=== PATIENT | male | born 1975 | race Caucasian/White ===

== ENCOUNTER 2017-02-16 16:21 | Emergency (ER) | payer BC, OTHER ==
[~2017-02-16] VITALS: Ht 177.8 cm; Wt 86.3 kg
[2017-02-16 16:22] VITALS: TEMP 36.6; Ht 177.8 cm; Wt 86.3 kg
[2017-02-16] MEDS ORDERED: ACET-1256 PO (16:49)
[2017-02-16] MEDS ORDERED: CYCLOBENZAPRINE HCL 10 MG TAB PO STA (16:51)
[2017-02-16] MEDS ORDERED: HYDROCODONE/ACETAMOPHEN 5/325MG TAB PO STA (16:51)
[2017-02-16] MEDS ORDERED: KETOROLAC TROMETHAMINE 60 MG/2 ML VIAL IM STA (16:51)
[2017-02-16] MEDS ORDERED: DEXAMETHASONE SOD INJ 10 MG/ML VIAL IM ONE (17:00)
--- NOTE | 2017-02-16 17:30 | DIAGNOSTIC IMAGING REPORT ---
LUMBAR SPINE 5 VIEWS CLINICAL HISTORY: Lumbago. FINDINGS: 5 views of the lumbar spine are correlated with abdominal CT dated 12/14/2015. The skeletal structures are well mineralized. There is no radiographic evidence of fracture or malalignment. Vertebral body height and alignment are maintained. The transverse and spinous processes are intact. There is no evidence of spondylolysis. The intervertebral disc spaces are well-maintained. The visualized bony pelvis appears intact. There is a nonobstructed abdominal bowel gas pattern. IMPRESSION: Unremarkable radiographic evaluation of the lumbosacral spine. Electronically signed by: Jonathon Malagon M.D. 02/16/2017 5:29 PM Dictated Date/Time: 02/16/2017 5:28 PM
--- NOTE | 2017-02-16 17:51 | EMERGENCY ROOM VISIT NOTE ---
ED Visit Note First contact with patient: 16:35 CHIEF COMPLAINT: Low back pain HISTORY OF PRESENT ILLNESS: This 41-year-old male presents the ER with chief complaint of low back pain. The patient states that on he was splitting wood with a log splitter and was sitting on a log for an extended period time leaning forward feeding in the wood to the splitter. The patient states that evening he started getting pain in the lower back and radiating down the back of both his legs. The patient denies any numbness and tingling. The patient states it hurts to sit down or lay down. The patient has been taken ibuprofen without any relief. The patient denies any loss of bowel or bladder control. The patient denies any saddle anesthesia or any urinary symptoms. REVIEW OF SYSTEMS: 6 system review was performed and was negative unless stated otherwise in history of present illness. PMH: The patient is healthy; stomach problems SOCIAL HISTORY: Patient lives with his . The patient admits to tobacco use but denies any alcohol use. PHYSICAL EXAM: Vital Signs normal: Reviewed Nurse's notes and agree. GEN.: 41- year-old white male appears uncomfortable secondary to back pain. MENTAL STATUS : Alert and oriented in no acute distress. LUMBAR SPINE: No gross bony abnormality noted. Patient is nontender to palpation over the spinous processes. He is tender to palpation over the paravertebral regions bilaterally.. He has full range of motion of the lumbar spine with pain elicited with all movements. Muscle strength is 5 out of 5 bilateral lower extremities and symmetrical. NEURO: Patient is able to heel and toe walk without difficulty. I lateral patellar and Achilles reflexes are 2+. Sensation is intact to pinprick bilateral lower extremities. Negative straight leg raise bilaterally. EMERGENCY DEPARTMENT COURSE: The patient was evaluated. The patient was given Toradol 60 mg IM, Decadron 10 mg IM, Flexeril 10 mg by mouth and [place] 5/325 mg 2 tablets by mouth for pain. X-ray of the lumbar spine was ordered and interpreted by the radiologist and myself. DIAGNOSTICS:LUMBAR SPINE 5 VIEWS CLINICAL HISTORY: Lumbago. FINDINGS: 5 views of the lumbar spine are correlated with abdominal CT dated 12/14/2015. The skeletal structures are well mineralized. There is no radiographic evidence of fracture or malalignment. Vertebral body height and alignment are maintained. The transverse and spinous processes are intact. There is no evidence of spondylolysis. The intervertebral disc spaces are well-maintained. The visualized bony pelvis appears intact. There is a nonobstructed abdominal bowel gas pattern. IMPRESSION: Unremarkable radiographic evaluation of the lumbosacral spine. Electronically signed by: Jonathon Malagon M.D. 02/16/2017 5:29 PM Dictated Date/Time: 02/16/2017 5:28 PM The patient was informed of the findings. The patient was reevaluated was feeling better. The patient was discharged home with his driving. DIAGNOSIS: Lumbar strain DISCHARGE INSTRUCTIONS AND TREATMENT: Take Medrol dosepak as prescribed. Ibuprofen 600 mg every 6 hours with food for pain. Rx is given for [place] 5/325 mg. 1-2 tablets every 6 hours as needed for more severe pain. Dispense [address] taking the [place] patient was also given Rx for Flexeril 10 mg. One tablet p.o. every 8 hours for muscle spasms. Dispense [address] taking the Flexeril. Avoid staying in any one position for an extended period of time. If symptoms persist or worsen, follow up with your family doctor for referral for additional testing. Problem List Medical Problems: (1) Tobacco use disorder Status: Chronic Surgical Problems: (1) S/P colectomy Permanent Comment: Sigmoidectomy with end colostomy Status: Chronic Current/Historical Medications Scheduled PRN Acetaminophen (Tylenol), 1,000 MG PO Q6H PRN for Pain Ibuprofen Tab (Advil), 800 MG PO Q8 PRN for Pain Allergies Coded Allergies: No Known Allergies (Unverified , 12/10/15) Vital Signs Date Time Temp Pulse Resp B/P (MAP) Pulse Ox O2 Delivery O2 Flow Rate FiO2 02/16/17 16:22 36.6 71 15 145/90 98 Room Air Medications Administered Medications (Trade) Dose Ordered Sig/Binta Route Start Time Stop Time Status Last Admin Dose Admin Ketorolac Tromethamine (Toradol Inj) 60 mg NOW STAT IM 02/16/17 16:51 02/16/17 16:57 DC 02/16/17 17:17 60 MG Dexamethasone Sodium Phosphate (Decadron Inj) 10 mg NOW ONCE IM 02/16/17 17:00 02/16/17 17:01 DC 02/16/17 17:18 10 MG Cyclobenzaprine HCl (Flexeril Tab) 10 mg NOW STAT PO 02/16/17 16:51 02/16/17 16:57 DC 02/16/17 17:17 10 MG Acetaminophen/ Hydrocodone Bitart ([place] 5/325 Tab) 2 tab NOW STAT PO 02/16/17 16:51 02/16/17 16:57 DC 02/16/17 17:18 2 TAB Departure Information Referrals Karon Marie D.O. (PCP) Patient Instructions [facility]
[2017-02-16] MEDS ORDERED: CYCL10TA6 PO (17:53)
[2017-02-16] MEDS ORDERED: METH4PAK PO (17:53)
[2017-02-16] MEDS ORDERED: HYDR-5688 PO (17:53)
[2017-02-16 18:22] VITALS: BP 137/81; PULSE 78; O2SAT 99
== END 2017-02-16 18:22 | disposition home or self-care (01) ==
LOC: C.EDB 16:22 → C.EDD 18:22
DX: S39.012A Strain of muscle, fascia and tendon of lower back, initial encounter (principal); X58.XXXA Exposure to other specified factors, initial encounter; F17.200 Nicotine dependence, unspecified, uncomplicated; Z90.49 Acquired absence of other specified parts of digestive tract

== ENCOUNTER 2017-03-03 16:46 | Emergency (ER) | payer BC ==
[~2017-03-03] VITALS: Ht 177.8 cm; Wt 87.6 kg
[~2017-03-03 16:46] MED LIST: ACET-1256 PO; HYDR-5688 PO
[2017-03-03] MEDS ORDERED: IBUP-103 PO (16:49)
[2017-03-03 16:53] VITALS: TEMP 37; Ht 177.8 cm; Wt 87.6 kg
[2017-03-03] MEDS ORDERED: NAPROXEN 250 MG TAB PO STA (17:14)
--- NOTE | 2017-03-03 17:20 | EMERGENCY ROOM VISIT NOTE ---
ED Visit Note First contact with patient: 17:07 CHIEF COMPLAINT: Right knee pain HISTORY OF PRESENT ILLNESS: This 41-year-old male patient presents to the emergency department 2 days after sustaining an injury to the right knee while walking out of the [place]. The patient states he was walking, and twisted his right knee. He states he felt like the bottom of his knee was dropping down into his lower leg. He now describes a sore and swollen sensation, and states it is hard to walk. States the pain is on the medial and lateral aspects of the knee, worse superiorly. There is discomfort with walking and bending, but discomfort improves with sitting still. The patient has been intermittently taking 600 mg ibuprofen without relief of his pain. He describes the pain as sharp and 8/10 while walking. The patient denies any other injuries besides their knee. No numbness or tingling. No previous injuries to this knee. No ankle, foot or hip pain. REVIEW OF SYSTEMS: A 6 system review of systems was completed with positives and pertinent negatives listed in the HPI. ALLERGIES: None MEDICATIONS: None PMH: None SOCIAL HISTORY: Lives locally with family. He denies drug, alcohol use. The patient admits to smoking 2 packs of cigarettes per day. PHYSICAL EXAM: Vital Signs: Reviewed Nurse's notes, vital signs stable. GENERAL : This is a 41-year-old male, no acute distress, but appears in pain, well- developed, well-nourished. MENTAL STATUS: Alert, oriented to person place and time, and cooperative. MUSCULOSKELETAL: The right knee is mildly swollen. There is no ecchymosis. There is no joint effusion present. The patient is tender on the lateral and medial aspects. There is minimal joint line tenderness. The patella does appropriately subluxate. Range of motion is full. Strength of the quads and hamstrings is 5/5. Kellie's is negative. Judit's and Anterior Drawer tests are negative. There is discomfort, but no laxity with varus and valgus stressing. The foot and toes are warm and well-perfused. Dorsalis pedis pulse 2+. Sensation to pain and light touch is intact. Capillary refill less than 2 seconds. RADIOLOGY: X-Ray Right Knee: RIGHT KNEE 3 VIEWS CLINICAL HISTORY: Right knee pain. Twisting injury several days previously. FINDINGS: AP, crosstable lateral, and sunrise views of the right knee are obtained. No prior studies are available for comparison at the time of dictation. The skeletal structures are well mineralized. No fracture is seen. The joint spaces of the knee are well-maintained. There is a large superior patellar enthesophyte. A joint effusion is identified. Prepatellar soft tissue swelling is noted. A calcified fabella is incidentally noted. A benign-appearing sclerotic focus in the distal femoral shaft likely represents a small enchondroma. IMPRESSION: Joint effusion and soft tissue swelling. No fracture is identified. Electronically signed by: Jonathon Malagon M.D. 03/03/2017 6:02 PM Dictated Date/Time: 03/03/2017 6:01 PM EMERGENCY DEPARTMENT COURSE: I examined the patient. X-rays of the right knee were reviewed by myself and read by radiology and reveal no acute fracture or abnormality. The patient was placed in a knee immobilizer under my direction and the position was satisfactory. The patient was instructed on the use of crutches. The patient was discharged home in good condition. I attest that I have personally reviewed the patient's current medication list. Patient was found to have normal blood pressure on screening and does not require follow-up. DIFFERENTIAL DIAGNOSIS: Knee pain, strain, sprain, contusion, meniscus tear, fracture, effusion, malignancy, and others DIAGNOSIS: Right knee pain Problem List Medical Problems: (1) Tobacco use disorder Status: Chronic Surgical Problems: (1) S/P colectomy Permanent Comment: Sigmoidectomy with end colostomy Status: Chronic Current/Historical Medications Scheduled PRN Ibuprofen Tab (Advil), 600-800 MG PO Q8 PRN for Pain Allergies Coded Allergies: No Known Allergies (Unverified , 12/10/15) Vital Signs Date Time Temp Pulse Resp B/P (MAP) Pulse Ox O2 Delivery O2 Flow Rate FiO2 03/03/17 18:40 62 18 109/63 95 03/03/17 16:53 37.0 94 20 143/78 98 Room Air Medications Administered Medications (Trade) Dose Ordered Sig/Binta Route Start Time Stop Time Status Last Admin Dose Admin Naproxen (Naprosyn Tab) 500 mg NOW STAT PO 03/03/17 17:14 03/03/17 17:15 DC 03/03/17 17:27 500 MG Departure Information Impression Primary Impression: Knee pain Dispostion Home / Self-Care Condition GOOD Referrals No Doctor, Assigned (PCP) Armond Chang M.D. Patient Instructions ED Knee Pain IESHA, [facility] Additional Instructions You have been treated in the Emergency Department for Knee Pain. For pain control, you can use the following [id number] medicines (if >12 yo): Ibuprofen(Motrin, Advil) may be used for fever or pain. Use 600mg every six hours as needed. Take with food. Avoid using more than 2400mg in a 24 hour period. Do not use 2400mg per day for more than three consecutive days without physician direction. Prolonged inappropriate use can lead to stomach upset or ulcers. (AND/OR) Acetaminophen(Tylenol) may be used for fever or pain. Use 1000mg every six hours as needed. Avoid using more than 3000mg in a 24 hour period. If this is a recent injury (<24 hrs), ice can be applied to the area of pain for the first 3 days to help decrease pain and inflammation. Ice massages can be performed by freezing water in a paper cup, peeling back the cup to expose the ice and then massaging over the affected area. You have been provided the number for an Orthopaedic Surgeon. You should call this number as soon as possible to establish a follow-up visit from today's Emergency Department visit. Keep the knee brace in place until cleared by Orthopedics. Use the crutches you have been provided to keep ALL weight off of the knee until weight bearing is tolerable. Return to the Emergency Department if your current symptoms worsen despite treatment course outlined above. Problem Qualifiers Primary Impression: Knee pain Chronicity: acute Laterality: right Qualified Codes: M25.561 - Pain in right knee
--- NOTE | 2017-03-03 18:04 | DIAGNOSTIC IMAGING REPORT ---
RIGHT KNEE 3 VIEWS CLINICAL HISTORY: Right knee pain. Twisting injury several days previously. FINDINGS: AP, crosstable lateral, and sunrise views of the right knee are obtained. No prior studies are available for comparison at the time of dictation. The skeletal structures are well mineralized. No fracture is seen. The joint spaces of the knee are well-maintained. There is a large superior patellar enthesophyte. A joint effusion is identified. Prepatellar soft tissue swelling is noted. A calcified fabella is incidentally noted. A benign-appearing sclerotic focus in the distal femoral shaft likely represents a small enchondroma. IMPRESSION: Joint effusion and soft tissue swelling. No fracture is identified. Electronically signed by: Jonathon Malagon M.D. 03/03/2017 6:02 PM Dictated Date/Time: 03/03/2017 6:01 PM
[2017-03-03 18:40] VITALS: BP 109/63; PULSE 62; O2SAT 95
== END 2017-03-03 18:41 | disposition home or self-care (01) ==
LOC: C.EDB 16:47 → C.EDD 18:41
DX: M25.561 Pain in right knee (principal); M25.461 Effusion, right knee; F17.200 Nicotine dependence, unspecified, uncomplicated; Z98.890 Other specified postprocedural states

== ENCOUNTER → 2017-08-18 | Outpatient (CLI) | payer BC ==
[~2017-08-18] MED LIST changes: -ACET-1256 PO; -HYDR-5688 PO; +IBUP-103 PO
--- NOTE | 2017-08-18 09:21 | DIAGNOSTIC IMAGING REPORT ---
CHEST 2 VIEWS ROUTINE CLINICAL HISTORY: PRE-OP preoperative COMPARISON STUDY: 09/05/2015 FINDINGS: The bones soft tissues and hemidiaphragms are normal. The cardiomediastinal silhouette is normal. The lungs are clear. The pulmonary vasculature is normal. IMPRESSION: Negative chest. The above report was generated using voice recognition software. It may contain grammatical, syntax or spelling errors. Electronically signed by: Mayo Yanez M.D. 08/18/2017 9:20 AM Dictated Date/Time: 08/18/2017 9:19 AM
[2017-08-18 10:49] LABS: BASO % 0.2 %; BASO ABS # 0.03 K/uL (0-0.2); EOS % 0.8 %; HEMATOCRIT 43.2 % (42-52); IG# 0.03 K/uL (0.00-0.02); LYMPH % 25.3 %; LYMPH ABS # 3.09 K/uL (1.2-3.4); MEAN CELL VOLUME 91.5 fL (80-100); MEAN CORPUSCULAR HEMOGLOBIN 31.8 pg (25-34); MEAN CORPUSCULAR HGB CONC 34.7 g/dl (32-36); MEAN PLATELET VOLUME 11.9 fL (7.4-10.4); MONO % 9.2 %; MONO ABS # 1.12 K/uL (0.11-0.59); NEUT % 64.3 %; NEUT ABS # 7.84 K/uL (1.4-6.5); PLATELET COUNT 257 K/uL (130-400); RED CELL DISTRIBUTION WIDTH CV 13.5 % (11.5-14.5); RED CELL DISTRIBUTION WIDTH SD 44.3 fL (36.4-46.3); WHITE BLOOD COUNT 12.21 K/uL (4.8-10.8)
[2017-08-18 11:22] LABS: BLOOD UREA NITROGEN 12 mg/dl (7-18); CALCIUM 9.2 mg/dl (8.5-10.1); CARBON DIOXIDE 27 mmol/L (21-32); CREATININE 0.91 mg/dl (0.60-1.40); GLUCOSE 92 mg/dl (70-99); POTASSIUM 3.9 mmol/L (3.5-5.1); SODIUM 140 mmol/L (136-145)
== END | disposition home or self-care (01) ==
LOC: C.RADBC 08:59
PROVIDERS: ATTEND Orthopaedic Surgery
DX: Z01.811 Encounter for preprocedural respiratory examination (principal); Z01.812 Encounter for preprocedural laboratory examination; S83.242A Other tear of medial meniscus, current injury, left knee, initial encounter; X58.XXXA Exposure to other specified factors, initial encounter

== ENCOUNTER → 2017-09-03 | Day surgery (SDC) | payer BC ==
[2017-08-19 10:59] VITALS: Ht 177.8 cm; Wt 84.1 kg
[~2017-09-03] VITALS: Ht 177.8 cm; Wt 84.1 kg
[~2017-09-03] MED LIST changes: +ATROPINE SULFATE 0.1 MG/ML 5ML SYR IV PRN; +CEFAZOLIN 2000MG IV PUSH 15 ML IV SCH; +DEXAMETHASONE SOD INJ 4 MG/ML VIAL ONE; +EpHEDrine SULFATE INJ 50 MG/ML AMP IV PRN; +EpINEphrine INJ 1MG/ML AMP 1 MG/ML AMP ONE; +FENTANYL CITRATE INJ 50 MCG/1 ML 2 ML VIAL ONE; +HYDR-5688 PO; +HYDROCODONE/ACETAMIN 5/325MG TAB PO PRN; +KETOROLAC TROMETHAMINE 30 MG/ML VIAL ONE; +LACTATED RINGER'S 1000ML 1,000 ML IV SCH; +LIDOCAINE HCL 2% 2 ML VIAL (20MG/ML) ONE; +MIDAZOLAM HCL 1 MG/ML 2ML VIAL ONE; +ONDANSETRON INJ 2 MG/ML 2 ML VIAL IV PRN; +ONDANSETRON INJ 2 MG/ML 2 ML VIAL ONE; +PROPOFOL IV EMULSION 10 MG/ML 20 ML VIAL IV ONE; +ROPIVACAINE 0.5% 5 MG/ML 30 ML VIAL ONE; +SODIUM CHLORIDE 0.9% 1000ML 1,000 ML IV SCH
--- NOTE | 2017-09-03 07:49 | History & Physical Bridge Note ---
H&P Re-Evaluation Bridge Note: I have examined the patient, reviewed the History & Physical and in the interval since the performance of the History & Physical I have noted the following changes of clinical significance: No changes noted
--- NOTE | 2017-09-03 09:29 | [facility] Post Operative Brief Note ---
Immediate Operative Summary Operative Date Sep 03, 2017. Pre-Operative Diagnosis Left Acute Meniscal Tear, Medial, Knee Pain Post-Operative Diagnosis Same Procedure(s) Performed Left Knee Arthroscopy with Partial Medial Meniscectomy Surgeon Dr. Perez Optometrist Surgeon(s) Joycelyn Hollis PA-C Estimated Blood Loss 5ml Findings Consistent with Post-Op Diagnosis Specimens None Drains None Anesthesia Type General Complication(s) none Disposition Disposition: Recovery Room / PACU
--- NOTE | 2017-09-03 09:32 | Discharge Instructions-SurgCtr ---
Discharge Instructions Date of Service Sep 03, 2017. Visit Reason for Visit: Acute Meniscal Tear, Medial, Knee Pain Discharge Discharge Diagnosis / Problem: SAME ABOVE Discharge Goals Goal(s): Decrease discomfort, Improve function Activity Recommendations Activity Limitations: as noted below Lifting Limitations: gradually increase as tolerated Exercise/Sports Limitations: gradually increase as tolerated Shower/Bathe: tomorrow Anesthesia . Post Anesthesia Instructions: If you have had General Anesthesia or IV Sedation: * Do not drive today. * Resume driving when surgeon permits. * Do not make important decisions or sign legal documents today. * Call surgeon for: 1. Temperature elevations greater than 101 degrees F. 2. Uncontrollable pain. 3. Excessive bleeding. 4. Persistent nausea and vomiting. 5. Medication intolerance (nausea, vomiting or rash). * For nausea and vomiting use only clear liquids such as: tea, soda, bouillon until nausea subsides, then gradually increase diet as tolerated. * If you have any concerns or questions, call your surgeon's office. If physician is unavailable and it is an emergency, call 911 or go to the nearest emergency room. . Instructions / Follow-Up Instructions / Follow-Up MEDICATIONS: * Resume previous medications unless instructed otherwise by your surgeon. * Always take pain medication on a full stomach or with food to avoid upset stomach. * Do not drink alcohol or drive while taking narcotics. * Ibuprofen or Tylenol may be taken if narcotic not needed. SPECIAL CARE INSTRUCTIONS: __ None _X_ Keep extremity elevated and iced x 48 hours; apply ice 20-30 minutes 8-10 times/day. May remove at night. _X_ Crutches _X_ May discard when able __ Brace/Post-op shoe __ 24 hrs/day __ Remove at night _X_ Dressing __ Maintain until seen in office, may shower with plastic over site _X_ Remove dressings in 24-48 hours and then may shower _X_ Cover incisions with band-aids after showering __ Do not remove steri-strips Call physician if chills or temperature rises above 102 degrees or pain unrelieved by prescribed pain medications. Office [phone] Diet Recommendations Home Diet: no limitations Fluid Restriction: None Procedures Procedures Performed: Left Knee Arthroscopy with Partial Medial Meniscectomy Pending Studies Studies pending at discharge: no Work Instructions Return To Work: after follow-up Medical Emergencies . Who to Call and When: Medical Emergencies: If at any time you feel your situation is an emergency, please call 911 immediately. . Non-Emergent Contact Non-Emergency issues call your: Primary Care Provider Call Non-Emergent contact if: you have a fever, temperature is above 101.5 . . "Provider Documentation" section prepared by Paul Hollis. .
--- NOTE | 2017-09-03 09:38 | OPERATIVE REPORT ---
DATE OF OPERATION: 09/03/2017 PREOPERATIVE DIAGNOSIS: Medial meniscal tear of the left knee. POSTOPERATIVE DIAGNOSIS: Same. PROCEDURE: Left knee arthroscopy with partial medial meniscectomy. SURGEON: Ross Perez DO. COOLER WORKER: Paul Hollis PA-C, whose assistance was necessary for positioning the leg and helping with the closure. ANESTHESIA: General. COMPLICATIONS: None. CONDITION: Stable to PACU. INDICATIONS: Clifton is a pleasant 42-year-old male who I did a right knee arthroscopy around 6 months ago. He did very well with that. Unfortunately, he was having similar symptoms in his left knee. MRI and clinical examination were diagnostic for partial medial meniscus tear. After failing conservative treatment, he elected to undergo arthroscopy. OPERATION AND FINDINGS: On 09/03/2017, he arrived at [facility] for the above procedure. He was seen in the preoperative holding area and the operative extremity was identified and signed. He was given a preoperative antibiotic and taken back to operating room, laid on the table in supine position and put under general anesthesia. The left knee was prepped and draped in sterile fashion. Time-out was done. The patient and operative extremity was properly identified. The scope was introduced into the lateral parapatellar portal. Diagnostic arthroscopy showed no loose bodies in the suprapatellar pouch. There was no arthritis within the trochlea or the undersurface of the patella. The scope was brought into the medial compartment. A medial parapatellar portal was made under direct visualization. There was a kind of a horizontal flip tear of the body of the medial meniscus. A probe was used to probe the tear and then a shaver was used to remove the unstable portions of the tear. This completed a partial meniscectomy. The remainder of the meniscus was probed and found to be stable. There was no cartilage defects in the medial compartment. The scope was brought into the trochlea. ACL and PCL were intact. The scope was brought into the lateral compartment and there was no meniscus or cartilage damage laterally. The scope was placed in the contralateral portal. Repeat diagnostic arthroscopy showed no additional pathology. Arthroscopic instrument removed from the knee. Portal sites were closed with 3-0 nylon. The knee was then injected with 30 mL of Naropin with Toradol. He was then placed in a soft compressive dressing, extubated, transferred to a [facility] and taken to the postanesthesia care unit in stable condition. He tolerated the procedure well. I attest to the content of the Intraoperative Record and any orders documented therein. Any exception s are noted below.
[2017-09-03] MEDS: FENTANYL CITRATE INJ 50 MCG/1 ML 2 ML VIAL IV PRN ×2 (09:56→10:02)
[2017-09-03 10:14] VITALS: TEMP 36.5
--- NOTE | 2017-09-03 10:26 | Anesthesia Progress Nt - [facility] ---
Anesthesia Post Op Note Date & Time Sep 03, 2017 at 10:26 Vital Signs Pain Intensity: 4 Vital Signs Past 12 Hours Date Time Temp Pulse Resp B/P (MAP) Pulse Ox O2 Delivery O2 Flow Rate FiO2 09/03/17 10:07 58 16 09/03/17 10:07 56 16 95 09/03/17 10:06 104/68 09/03/17 10:02 54 19 95 09/03/17 10:02 54 19 09/03/17 10:01 109/67 09/03/17 10:00 36.7 96 Room Air 09/03/17 09:57 60 16 09/03/17 09:57 62 16 95 09/03/17 09:56 108/70 09/03/17 09:52 55 16 95 09/03/17 09:52 57 16 09/03/17 09:51 112/71 09/03/17 09:47 60 19 09/03/17 09:47 58 19 100 09/03/17 09:46 76 21 09/03/17 09:46 75 21 115/82 100 09/03/17 09:41 70 19 121/77 100 09/03/17 09:41 72 19 09/03/17 09:37 36.5 64 16 108/71 99 Mask 6 09/03/17 09:37 108/71 09/03/17 09:36 66 09/03/17 09:36 66 99 09/03/17 07:32 36.8 77 16 108/73 (85) 94 Room Air Notes Mental Status: alert / awake / arousable, participated in evaluation Pt Amnestic to Procedure: Yes Nausea / Vomiting: adequately controlled Pain: adequately controlled Airway Patency, RR, SpO2: stable & adequate BP & HR: stable & adequate Hydration State: stable & adequate Anesthetic Complications: no major complications apparent
[2017-09-03 10:41] VITALS: BP 101/65; PULSE 61; O2SAT 95
== END | disposition home or self-care (01) ==
LOC: X.SURG 07:21
PROVIDERS: ATTEND Orthopaedic Surgery
DX: S83.242A Other tear of medial meniscus, current injury, left knee, initial encounter (principal); X58.XXXA Exposure to other specified factors, initial encounter